=== PATIENT | female | born 1970 | race Caucasian/White ===

== ENCOUNTER → 2016-08-03 17:00 | Outpatient (CLI) | payer OTHER ==
[2014-05-21 08:24] VITALS: BMI 43.8
[~2016-08-03 17:00] MED LIST: ADIPEX-P37.5 MG PO; K-TAB10 MEQ PO; LASIX20 MG PO; WELLBUTRIN SR150 MG PO
== END | disposition home or self-care (01) ==
LOC: D.MAMMO 16:00
DX: Z12.31 Encounter for screening mammogram for malignant neoplasm of breast (principal)

== ENCOUNTER 2018-07-19 19:00 | Outpatient (CLI) | payer OTHER ==
[2014-05-21 08:24] VITALS: BMI 43.8
== END 2018-07-19 23:59 | disposition home or self-care (01) ==
LOC: D.MAMMO 19:00
PROVIDERS: ATTEND Family Medicine
DX: Z12.31 Encounter for screening mammogram for malignant neoplasm of breast (principal)

== ENCOUNTER → 2020-01-27 10:27 | Outpatient (CLI) | payer OTHER ==
[2014-05-21 08:24] VITALS: BMI 43.8
== END | disposition home or self-care (01) ==
LOC: D.RAD 10:27
PROVIDERS: ATTEND Pediatrics
DX: Z02.71 Encounter for disability determination (principal)

== ENCOUNTER 2020-02-05 08:28 | Emergency (ER) | payer OTHER ==
[~2020-02-05] VITALS: Ht 165.1 cm; Wt 116.8 kg
[2020-02-05 08:39] VITALS: Ht 165.1 cm; Wt 116.8 kg
[2020-02-05] MEDS ORDERED: OTEZLA (08:44)
[2020-02-05] MEDS ORDERED: METHOTREXATE (08:45)
[2020-02-05] MEDS ORDERED: FOLIC ACID1 MG (08:47)
[2020-02-05] MEDS ORDERED: DICLOFENAC (08:47)
[2020-02-05] MEDS ORDERED: OMEPRAZOLE20 M1 (08:48)
[2020-02-05] MEDS ORDERED: [UNRECOGNIZED DRUG - REMARK] (08:48)
[2020-02-05] MEDS ORDERED: GABAPENTIN100 MG (08:48)
[2020-02-05] MEDS ORDERED: NORCO 7.5-3251 EACH (08:49)
[2020-02-05] MEDS ORDERED: NAPROSYN500 MG PO (10:35)
[2020-02-05 10:57] VITALS: BP 170/89
== END 2020-02-05 10:57 | disposition home or self-care (01) ==
LOC: D.ER 08:28
DX: S20.219A Contusion of unspecified front wall of thorax, initial encounter (principal); T14.8XXA Other injury of unspecified body region, initial encounter; V89.2XXA Person injured in unspecified motor-vehicle accident, traffic, initial encounter